=== PATIENT | male | born 1985 | race Caucasian/White ===

== ENCOUNTER 2017-05-16 07:31 | Emergency (ER) | payer BC ==
[2017-05-16 07:33] VITALS: BP 120/80; PULSE 85; BMI 33.0
--- NOTE | 2017-05-16 08:00 | PDOC ---
History of Present Illness - General History Source: Patient Exam Limitations: No Limitations - History of Present Illness Initial Comments: 05/16/17 08:09 31 year old male, with no significant past medical history, who presents to the emergency room today complaining of an intermittent sore throat over the past couple of weeks. The patient states that he visited his PCP 4 days ago and had a outpatient ASO titer that was elevated. The sore throat has not yet subsided. Denies fever, chills, nausea. Denies cough. Denies chest pain, SOB. Allergies: NKDA Surgical Hx: Appendectomy Family Hx: hx of rheumatic fever <Rosanna Covarrubias - Last Filed: 05/16/17 08:09> <Arabella Abreu - Last Filed: 05/16/17 08:23> - General Chief Complaint: Sore Throat Stated Complaint: SORE THROAT Time Seen by Provider: 05/16/17 07:39 Past History <Rosanna Covarrubias - Last Filed: 05/16/17 08:09> - Past Medical History COPD: No - Surgical History Abdominal Surgery: Yes Appendectomy: Yes - Suicide/Smoking/Psychosocial Hx Smoking History: Never smoked Have you smoked in the past 12 months: No Information on smoking cessation initiated: No Hx Alcohol Use: No Drug/Substance Use Hx: No Substance Use Type: None <Arabella Abreu - Last Filed: 05/16/17 08:23> - Past Medical History Allergies/Adverse Reactions: Allergies Allergy/AdvReac Type Severity Reaction Status Date / Time No Known Allergies Allergy Verified 05/16/17 07:33 Home Medications: Ambulatory Orders Amoxicillin - [Amoxicillin 875mg Tablet -] 875 mg PO BID #20 tablet 05/16/17 Review of Systems - Review of Systems Able to Perform ROS?: Yes Comments:: 05/16/17 08:10 GENERAL/CONSTITUTIONAL: No fever or chills. No weakness. HEAD, EYES, EARS, NOSE AND THROAT: +sore throat. No change in vision. No ear pain or discharge. GASTROINTESTINAL: No nausea, vomiting, diarrhea or constipation. GENITOURINARY: No dysuria, frequency, or change in urination. CARDIOVASCULAR: No chest pain or shortness of breath. RESPIRATORY: No cough, wheezing, or hemoptysis. MUSCULOSKELETAL: No joint or muscle swelling or pain. No neck or back pain. SKIN: No rash NEUROLOGIC: No headache, vertigo, loss of consciousness, or change in strength/ sensation. ENDOCRINE: No increased thirst. No abnormal weight change. HEMATOLOGIC/LYMPHATIC: No anemia, easy bleeding, or history of blood clots. ALLERGIC/IMMUNOLOGIC: No hives or skin allergy. <Rosanna Covarrubias - Last Filed: 05/16/17 08:09> *Physical Exam - Vital Signs Last Vital Signs Temp Pulse Resp BP Pulse Ox 85 18 120/80 98 05/16/17 07:31 05/16/17 07:31 05/16/17 07:31 05/16/17 07:31 - Physical Exam Comments: 05/16/17 08:10 Constitutional: Awake, alert, oriented. No acute distress.Non toxic appearing Head: Normocephalic. Atraumatic Eyes: PERRL. EOMI. Conjunctivae are not pale. ENT: Mucous membranes are moist and intact. +Posterior pharynx with erythema, but no exudates. Uvula midline. Neck: No posterior submandibular lymphadenopathy. Supple. Full ROM. No lymphadenopathy. Cardiovascular: Regular rate. Regular rhythm. S1, S2 regular. Distal pulses are 2+ and symmetric. Pulmonary/Chest: No evidence of respiratory distress. Clear to auscultation bilaterally No wheezing, rales or rhonchi. Abdominal: Soft and non-distended. There is no tenderness. No rebound, guarding or rigidity. No organomegaly. No palpable masses. Good bowel sounds. Back: No CVA tenderness. Musculoskeletal: No edema. No cyanosis. No clubbing. Full range of motion in all extremities. Nocalf tenderness. Radial/pedal pulses are intact and 2+ bilaterally Skin: Skin is warm and dry. No petechiae. No purpura. Neurological: Alert and oriented to person, place, and time. Cranial nerves II -XII are grossly intact. Normal speech. Strength is grossly symmetric. No sensory deficits. Psychiatric: Good eye contact. Normal interaction, affect and behavior. <Rosanna Covarrubias - Last Filed: 05/16/17 08:09> - Vital Signs Last Vital Signs Temp Pulse Resp BP Pulse Ox 85 18 120/80 98 05/16/17 07:31 05/16/17 07:31 05/16/17 07:31 05/16/17 07:31 <Arabella Abreu - Last Filed: 05/16/17 08:23> ED Treatment Course - ADDITIONAL ORDERS Additional order review: 05/16/17 07:40 Group A Strep Rapid Antigen - Final Throat <Rosanna Covarrubias - Last Filed: 05/16/17 08:09> Medical Decision Making - Medical Decision Making 05/16/17 07:55 a/p: 31yo male with +ASO titer as outpt. Requesting strep swab +sore throat intermittenlty x few weeks. -nontoxic in appearance -if rapid strep +will treat -fam hx of rheumatic fever. no rash, no abd pain, no nausea <Arabella Abreu - Last Filed: 05/16/17 08:23> *DC/Admit/Observation/Transfer - Attestations Scribe Attestion: 05/16/17 08:10 Documentation prepared by PRABHJOT Wilkerson, acting as medical instrument technician for Arabella Abreu DO. <Rosanna Covarrubias - Last Filed: 05/16/17 08:09> - Discharge Dispostion Admit: No - Attestations Physician Attestion: 05/16/17 08:22 I, Dr. Arabella Abreu DO, attest that this document has been prepared under my direction and personally reviewed by me in its entirety. I further attest, that it accurately reflects all work, treatment, procedures and medical decision -making performed by me. <Arabella Abreu - Last Filed: 05/16/17 08:23> Diagnosis at time of Disposition: Elevated antistreptolysin O titer, Pharyngitis - Discharge Dispostion Disposition: HOME Condition at time of disposition: Stable - Prescriptions Prescriptions: Amoxicillin - [Amoxicillin 875mg Tablet -] 875 mg PO BID #20 tablet - Referrals Referrals: STAFF,NOT ON [Primary Care Provider] - dr gregg [Other] - Patient Instructions Printed Discharge Instructions: Group B Streptococcal Disease Additional Instructions: Please repeat your ASO titer. follow up with your PMD.
== END 2017-05-16 08:25 | disposition home or self-care (01) ==
LOC: JER 07:31
DX: J02.9 Acute pharyngitis, unspecified (principal); R76.0 Raised antibody titer
CPT/HCPCS: 87070; 87077; 87430; 99282-25

== ENCOUNTER 2017-08-02 08:16 | Emergency (ER) | payer OTHER, BC ==
[2017-08-02 08:23] VITALS: BP 125/73; PULSE 75; TEMP 98.2; BMI 25.1
--- NOTE | 2017-08-02 08:34 | PDOC ---
Post Exposure HPI - General Chief Complaint: Blood/Body Fluid Exposure [facility] Stated Complaint: NEEDLE STICK Time Seen by Provider: 08/02/17 08:27 History Source: Patient Exam Limitations: No Limitations - History of Present Illness Initial Comments: 08/02/17 08:29 Patient is EM resident, and while using anesthesia to incise and drain abscess, patient was true lidocaine syringe and impaled himself on his left index finger tip states washed with Betadine soap and water, has his tetanus and otitis vaccinations up-to-date. Source patient may be tested for HIV and hepatitis. Timing: just prior to arrival Past History - Travel Traveled outside of the country in the last 30 days: No Close contact w/someone who was outside of country & ill: No - Past Medical History Allergies/Adverse Reactions: Allergies Allergy/AdvReac Type Severity Reaction Status Date / Time No Known Allergies Allergy Verified 08/02/17 08:23 Home Medications: Ambulatory Orders NK [No Known Home Medication] 08/02/17 COPD: No - Surgical History Abdominal Surgery: Yes Appendectomy: Yes - Suicide/Smoking/Psychosocial Hx Smoking History: Never smoked Have you smoked in the past 12 months: No Hx Alcohol Use: No Drug/Substance Use Hx: No Substance Use Type: None Review of Systems - Review of Systems Able to Perform ROS?: Yes Is the patient limited [place] proficient: Yes Constitutional: Yes: See HPI. No: Symptoms Reported HEENTM: No: Symptoms Reported Integumentary: Yes: Symptoms Reported, Other (puncture wound to left index finger distal phalanx ) All Other Systems: Reviewed and Negative *Physical Exam - Vital Signs Last Vital Signs Temp Pulse Resp BP Pulse Ox 98.2 F 75 18 125/73 99 08/02/17 08:20 08/02/17 08:20 08/02/17 08:20 08/02/17 08:20 08/02/17 08:20 - Physical Exam General Appearance: Yes: Nourished, Appropriately Dressed. No: Apparent Distress HEENT: positive: DELMY, Normal ENT Inspection, TMs Normal, Pharynx Normal Respiratory/Chest: positive: Lungs Clear Extremity: positive: Normal Capillary Refill, Normal Inspection Integumentary: positive: Normal Color, Dry, Pale, Other (puncture wound noted to the distal palmar aspect of feelings, has full range of motion of finger, neurovascular intact distal to injury. 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 Patient refuses prophylaxis medication, laboratory works obtained and HIV testing negative. Hepatitis testing pending. 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
[2017-08-02 09:07] LABS: EOS % 3.4 % (0-4.5); HEMATOCRIT 46.6 % (35.4-49); HEMOGLOBIN 15.3 GM/dL (11.7-16.9); LYMPH % 31.7 % (8-40); MCH 28.1 pg (25.7-33.7); MCHC 32.9 g/dl (32.0-35.9); MEAN CELL VOLUME 85.5 fl (80-96); MEAN PLT VOLUME 8.2 fl (7.5-11.1); MONO % 9.6 % (3.8-10.2); NEUT % 54.3 % (42.8-82.8); PLATELET COUNT 248 K/MM3 (134-434); RBC 5.45 M/mm3 (4.00-5.60); RDW 13.6 % (11.9-15.9); WHITE BLOOD COUNT 5.2 K/mm3 (4.0-10.0)
[2017-08-02 09:28] LABS: ALBUMIN 4.2 g/dl (3.4-5.0); ALK PHOS 58 U/L (45-117); ANION GAP 5 (8-16); BILIRUBIN,TOTAL 0.4 mg/dL (0.2-1.0); BLOOD UREA NITROGEN 15 mg/dL (7-18); CALCIUM 8.4 mg/dL (8.5-10.1); CHLORIDE 107 mmol/L (98-107); CO2 29 mmol/L (21-32); CREATININE 0.9 mg/dL (0.7-1.3); GLUCOSE,RANDOM 91 mg/dL (74-106); POTASSIUM 4.3 mmol/L (3.5-5.1); SGOT/AST 17 U/L (15-37); SGPT/ALT 36 U/L (12-78); SODIUM 141 mmol/L (136-145); TOT PROT 7.1 g/dl (6.4-8.2)
[2017-08-03 08:07] LABS: HBsAG SCREEN Negative (Negative); HEPATITIS B CORE ANTIBODY Negative (Negative)
== END 2017-08-02 11:57 | disposition home or self-care (01) ==
LOC: JERFT 08:16
DX: S61.231A Puncture wound without foreign body of left index finger without damage to nail, initial encounter (principal); W46.1XXA Contact with contaminated hypodermic needle, initial encounter; Y93.F9 Activity, other caregiving; Y92.238 Other place in hospital as the place of occurrence of the external cause; Y99.0 Civilian activity done for income or pay
CPT/HCPCS: 36415; 80053; 85025; 86704; 86803; 87340; 87389; 99282-25